=== PATIENT | female | born 1940 | race Caucasian/White ===

== ENCOUNTER 2017-02-21 08:51 | Day surgery (SDC) | payer MEDICARE ==
[2017-02-21] VITALS (11 sets, daily range): BP systolic 144–178; BP diastolic 63–85; PULSE 69–85; RESP 12–24; O2SAT 95–100
[~2017-02-21] VITALS: Ht 170.2 cm; Wt 80.7 kg
--- NOTE | 2017-02-21 06:47 | PCM.HPANE ---
Patient Data Surgeon Admitting Provider: Attending Provider:Rocky Ivy MD Primary Care Physician:Aaliyah Lopez Other Provider:Genesis Patrick Anesthesia Reason for Visit Right Breast Cancer Ht/WT & BMI Height (Feet): 5 Height (Inches): 7 Weight (Kilograms): 80.7 Body Mass Index 27.00 Allergies Coded Allergies: Penicillins (Verified Allergy, Severe, HIVES, 08/13/10) latex (Verified Allergy, Intermediate, rash with bandaids, 08/12/10) morphine (Verified Allergy, Intermediate, N/V, 08/12/10) levothyroxine sodium (Verified Allergy, Mild, itching, 08/12/10) Sulfa (Sulfonamide Antibiotics) (Verified Allergy, Unknown, 08/12/10) cortisone (Verified Allergy, Unknown, rash, 01/14/15) estradiol (Verified Allergy, Unknown, 04/22/16) gabapentin (Verified Allergy, Unknown, 04/22/16) milk (Verified Allergy, Unknown, 04/22/16) peanut (Verified Allergy, Unknown, 04/22/16) Uncoded Allergies: SULFA (Allergy, Unknown, 06/17/09) Past Anesthesia History Anesthesia History: Denies:: Abnormal Airway, Anesthesia Reactions, Difficult Intubation, Fam Anesthesia Reaction, Fam Malignant Hypertherm, Malignant Hyperthermia Diabetes History Hx Diabetes?: No MRSA MRSA: No Medications Blood Thinner: Aspirin Hypertension Medication: Yes Home Meds Incl Beta Jeanna: No Reported Medications Cholecalciferol (Vitamin D3) (Vitamin D3)1,000 Unit Tab.chew1,000 Unit PO DAILY 02/16/17 Levothyroxine (Synthroid)100 Mcg Xlejeo143 Mcg PO DAILY Ref 0 02/16/17 oxyCODONE 5 Mg Tablet5 Mg PO Q4H PRN For Pain Ref 0 02/16/17 Oxybutynin Chloride ER 5 Mg Tab.er.245 Mg PO DAILY Ref 0 02/16/17 Omeprazole 20 Mg Capsule.dr20 Mg PO DAILY Ref 0 02/16/17 Losartan Potassium 25 Mg Ltjpdu63 Mg PO DAILY 02/16/17 Lorazepam 0.5 Mg Tablet0.25-0.5 Mg PO TID PRN For Anxiety Ref 0 02/16/17 Fish Oil/Borage/Flax/Om3,6,9#1 (Hgtemvnn-Ajks-Thnfmc Oil Sftgl)400 Mg Abuikyy594 Mg PO BID 02/16/17 Multivits-Min/FA/Lycopene/Lut (Centrum Silver Tablet)1 Each Tablet1 Each PO DAILY 02/16/17 Calcium Carbonate (Calcium)600 Mg Ceshiz192 Mg PO BID 02/16/17 Biotin 1 Mg Tablet1 Mg PO DAILY 02/16/17 Aspirin 81 Mg Qujgjq33 Mg PO DAILY Ref 0 02/16/17 Acetaminophen (Tylenol Arthritis)650 Mg Tablet.er650 Mg PO TID PRN For Pain 02/16/17 Discontinued Reported Medications Ibuprofen 200 Mg Zwekapy022-956 Mg PO QID PRN For Pain Ref 0 02/16/17 Benzonatate 200 Mg Sahyulr158 Mg PO TID PRN For Cough 02/16/17 [place] Oil/[place]-3 Fatty Acids (Fish Oil 500 mg Softgel)1 Each Capsule1 Each PO DAILY 04/27/16 Calcium Carbonate 650 Mg Tablet1,500 Mg PO DAILY 04/27/16 Cholecalciferol (Vitamin D3) (Vitamin D3)1,000 Unit Tab.chew1,000 Unit PO DAILY 04/22/16 Losartan Potassium 25 Mg Ngruka98 Mg PO DAILY 04/22/16 Estradiol (Estrace)42.5 Gm Cream.appl1 G VG UD #1 TUBE Ref 0 04/22/16 Multivits-Min/FA/Lycopene/Lut (Centrum Silver Tablet)1 Each Tablet1 Each PO DAILY 04/22/16 Acetaminophen 325 Mg Rvzmpmr611 Mg PO TID PRN For Pain 04/22/16 Levothyroxine (Synthroid)88 Mcg Iygtoh31 Mcg PO DAILY 30 Days Ref 0 01/10/15 Lactobacillus Combo No.11 (Probiotic)1 Each Cap.sprink1 Tab PO DAILY 01/10/15 Oxybutynin Chloride ER 5 Mg Tab.er.245 Mg PO DAILY 30 Days Ref 0 01/10/15 Omeprazole Magnesium (Omeprazole)20 Mg Capsule.dr20 Mg PO BID 30 Days Ref 0 01/10/15 Ibuprofen 200 Mg Juukyok456-618 Mg PO DAILYWD Ref 0 01/10/15 Biotin 1 Mg Tablet1 Mg PO 01/10/15 Aspirin (Aspir 81)81 Mg Tablet.dr81 Mg PO DAILY Ref 0 01/10/15 History History of ENT Problems?: Yes HEENT History: Positive for:: Cataracts (bilateral surgery) Dysphagia Hearing Problem (MILD) Sinus Problem (frequent AYERS due to Sinus pressure) TMJ (wears nightguard) Denies:: Abnormal Airway Difficult Intubation Glaucoma Denture Type: None Teeth Condition: Within Normal Limits Hx of Heart Problems?: Yes Cardiovascular History: Positive for:: Hypertension Irregular Heartbeat (hx of irregular heart beat) Denies:: AICD Atrial Fibrillation Cardiac Surgery Chest Pain Congestive Heart Failure Coronary Artery Disease Edema Heart Murmur Pacemaker Thrombophlebitis Valvular Heart Disease Hx of Respiratory Problem?: Yes Respiratory History: Positive for:: Dyspnea (with PE remote hx) Pneumonia (hx of- not current ) Use of C-PAP Machine Denies:: Asthma COPD Chest Surgery Cough Emphysema Hemoptysis Oxygen Administration Tuberculosis Hx Neurologic Problems?: No Neurological History: Denies:: Alzheimer's Disease CVA Dementia Dizziness Headaches Multiple Sclerosis Parkinson's Disease Seizures Hx of GI Problems?: No Hx of Problems?: Yes Genitourinary History: Denies:: Kidney Stones Urinary Tract Infection Other Pertinent History: hx of bladder cancer - Female Hx: Positive for:: Problems with Breasts? (right breast current admission problem) Denies:: Currently (hysterectomy) Endometriosis Pelvic Inflammatory Skin History: Positive for:: History Skin Disorders? (recent back incision- healing nicely ) Denies:: Pressure Ulcers Hx Musculoskeletal Problems?: Yes Musculoskeletal History: Positive for:: Back Injury (back surgery [place] 14[place] - fusion two vertebrae lumbar) Degenerative Joint Joint Replacement (R TKA) Osteoarthritis Denies:: Fibromyalgia Musculoskeletal Trauma Systemic Lupus Hx of Psycho/Social Problems?: No Psycho Social History: Denies:: Anxiety Bipolar Disorder Hx Depression Hx Surgeries?: Yes (hysterectomy,bladder repair,knee replacement,back fusion, thyroid) Hx Any Other Health Problems?: Yes Other History: Positive for:: Cancer (bladder & thyroid, breast current admission problem) Hospitalization Thyroid Disease (removed) Denies:: Endocrine Disease History Blood Transfusions: Positive for:: Accept Blood Products? Denies:: Blood Transfusions Hx Diabetes: No Hx Alcohol Use: NoHx Substance Use: No Smoking Status: Former Smoker Have You Smoked inLast 12 mo: No Stop/Bang Treated for Sleep Apnea?: Yes Do You Have a CPAP Machine?: Yes S-Snoring: Do You Snore Loudly: No T-Tired: feel tired, fatigued: No O-Obsered: Observed not breath: No P-Blood Pressure: treated: Yes B- Body Mass Index > 35 kg/m2: No A- Age over 50: Yes N- Neck Large Circumference: No G- Gender Male: No KAL Total Score: 2 KAL Risk Assessment: High Risk, =/>3 Yes KAL Category 2: Yes Risk Assessment Category Category 1A: Patient has history of documented sleep apnea, and HAS NOT received any narcotic, sedative or anesthesia administration during this stay. Category 1B: Patient has history of documented sleep apnea, and HAS received any narcotic , sedative or anesthesia administration during this stay Category 2: Patient has SUSPECTED Obstructive Sleep Apnea, and HAS received any narcotic , sedative or anesthesia administration during this stay. Category 3: Patient has SUSPECTED Obstructive Sleep Apnea and HAS NOT received narcotic, sedative or anesthesia administration during this stay. Category 4: Outpatient in Procedural Areas with known sleep apnea or who screen positive for High Risk via the STOP/BANG questionnaire. Exam Exam General Appearance: Alert, Oriented X3, Cooperative, No Acute Distress HEENT/AIRWAY: MP 2 Lungs: Clear to Auscultation, Normal Air Movement Heart: Exam Unremarkable, Regular Rate/Rhythm, No Murmurs/Rubs/Gallops Plan Impression Patient chart reviewed, patient interviewed and anesthestic plan with risks, benefits, and alternatives discussed, and informed consent obtained. NPO per Anesth. Guidelines: Yes ASA Physical Status: ASA2 Mod Systemic Disease Anesthetic Plan: GA Bene/Risks/Altern/Consents: Yes HP Complete Prior to Induction: Yes Deejay Jordan MD Feb 21, 2017 06:47
[~2017-02-21 08:51] MED LIST: ACET-2766 PO; ASPI-973 PO; BENZ200C44 PO; BIOT1TAB13 PO; CALC600T12 PO; CHOL10008 PO; FISH400C PO; IBUP200C PO; LEVO100T97 PO; LORA0.5T PO; LOSA25TA21 PO; Lactated Ringer's 1,000 ML IV ONE; MULT-1073 PO; OMEP20CA11 PO; OXYB5TAB PO; OXYC5TAB72 PO
[2017-02-21] MEDS ORDERED: Propofol 10,000 mCg/mL 20 mL Inj ONE (08:52)
[2017-02-21] MEDS ORDERED: fentaNYL-PF 50 mCg/mL 2 mL Inj ONE (08:52)
[2017-02-21] MEDS ORDERED: Ondansetron 2 mg/mL 2 mL Inj ONE (08:52)
[2017-02-21] MEDS ORDERED: Dexamethasone 4 mg/mL Inj ONE (08:52)
[2017-02-21] MEDS ORDERED: Lactated Ringer's 1,000 ML IV ONE (09:20)
--- NOTE | 2017-02-21 09:32 | DRSVH ---
PROCEDURE: NM SENTINEL NODE INJECTION ONLY, RIGHT BREAST RADIOPHARMACEUTICAL: 0.5 mCi Millipore filtered Tc-99m sulfur colloid. INDICATIONS: RIGHT BREAST CANCER PROCEDURE: The indications, alternatives, benefits, risks, and complications of the procedure were explained to the patient. Written informed consent was obtained and placed in the chart. The area around the nip ple was prepped and draped in a sterile fashion. Tc-99m sulfur colloid was injected in the outer edg e of the areola in the right breast. No image was obtained. IMPRESSION: Administration of radiotracer into the right breast periareolar region for intra-operati ve sentinel lymph node localization. Dictated by: Bernardino Esquivel M.D. on 02/21/2017 at 9:29 Approved by: Bernardino Esquivel M.D. on 02/21/2017 at 9:30
[2017-02-21] MEDS ORDERED: Bupivacaine-MPF 0.5% W/EPI 30 mL Inj INFILTRATE ONE (10:23)
[2017-02-21] MEDS ORDERED: Lactated Ringer's 1,000 ML IV SCH (10:53)
[2017-02-21] MEDS ORDERED: Lactated Ringer's 500 ML IV PRN (10:53)
[2017-02-21] MEDS ORDERED: Ondansetron 2 mg/mL 2 mL Inj IVPUSH PRN (10:55)
[2017-02-21] MEDS ORDERED: Labetalol 5 mg/mL 4 mL Inj IV PRN (10:55)
[2017-02-21] MEDS ORDERED: Dexamethasone 4 mg/mL Inj IVPUSH PRN (10:55)
[2017-02-21] MEDS ORDERED: MetoCLOpramide 5 mg/mL 2 mL Inj IVPUSH PRN (10:55)
[2017-02-21] MEDS ORDERED: EPHEDrine Sulfate 50 mg/mL Inj IVPUSH PRN (10:55)
[2017-02-21] MEDS ORDERED: Atropine 0.4 mg/mL Inj IVPUSH PRN (10:55)
[2017-02-21] MEDS ORDERED: Phenylephrine 10,000 mCg/mL Inj IVPUSH PRN (10:55)
--- NOTE | 2017-02-21 11:57 | PCM.SURGOP ---
Surgical Operative Report Date of Service: Feb 21, 2017 Pre Operative Diagnosis Right breast cancer Post Operative Diagnosis Same Procedure: Wire localized right partial mastectomy, right axillary sentinel lymph node biopsy, adjacent tissue transfer less than 60 cm Surgeon and Furniture Mover: Surgeon: Rocky Ivy MD Assistants: Karsten Guevara MD PGY-3 Indication for Procedure 77-year-old woman who was found on screening mammogram to have a new 6 mm irregular density in the right breast 8 o'clock position. Her biopsy demonstrated invasive lobular carcinoma, ER/MI positive, VDY-2-wfridwye. After discussion of risks and benefits, she agreed to proceed with wire localized right partial mastectomy, right axillary sentinel lymph node biopsy. Findings: There was a single sentinel node. There was very little radiotracer uptake, but it did blue dye uptake. The ex vivo gamma count was 18, compared to a background count of 3. Procedure Details Preoperatively, the patient underwent right breast wire localization in the [facility]. She was then brought to the preoperative area, where she received a radiotracer injection for sentinel node identification. She was brought to the operating room, where she underwent smooth induction of general anesthesia with an LMA. The radiotracer signal in the right axilla was quite weak, so methylene blue was injected. A total of 2 mL was injected in 0.5 mL aliquots into the subdermal tissue around the areolar border. The breast was massaged for several minutes. She was then prepped and draped in wide sterile fashion. A procedural pause was performed according to the SCOAP checklist, and all were found to be in agreement. A radial incision was made in the lower outer quadrant of the right breast. Dissection was carried down through the superficial breast parenchyma with electrocautery. The wire was delivered into the wound from the lateral aspect. Using the wire as a guide, circumferential dissection was carried out. At the superficial aspect along the wire, the gelatin capsule around the clip was visualized, as well as the clip. Dissection was carried back to the chest wall. Pectoralis muscle was not resected, but the posterior margin of dissection circumferentially was the pectoralis fascia. The right breast tissue from the lower outer quadrant was excised, oriented with suture, and a specimen radiograph was obtained. The clip was present in the specimen. That tissue was sent for permanent pathology. Because the clip had been encountered along the wire superficially, anterior margins were obtained, which extended along both sides of the cavity circumferentially back to the pectoralis fashion. First, a shave margin was obtained from the anteromedial margin, oriented with suture, and sent for permanent pathology. Next, an anterolateral margin was obtained with electrocautery, oriented with suture, and sent for permanent pathology. The breast parenchyma was then mobilized off the chest wall both medially and superolaterally. Breast parenchymal flaps measured approximately 5 x 5 cm each. The partial mastectomy cavity was marked with hemoclips. The breast parenchyma was approximated to obliterate the space using interrupted 3-0 Vicryl sutures both the deep aspect of the flap and the superficial aspect of the flap. A curvilinear incision was then made at the inferior border of the hairbearing skin in the right axilla. Dissection was carried through the subcutaneous tissue until the axillary fascia was incised. The axilla was explored using the gamma probe as a guide. The radiotracer signal in the right axilla was quite weak. Along the lateral border of the pectoralis muscle a blue lymphatic channel was visualized, and traced to a blue lymph node. That lymph node was excised using electrocautery. Ex vivo, it had a weak but definite radiotracer signal of 18. The background count in the right axilla was 3. That lymph node was sent for permanent pathology, labeled as right axillary sentinel lymph node. There were no other pathologic lymph nodes in the right axilla. The axillary fascia was closed with interrupted 3-0 Vicryl suture. Both skin incisions were closed with running 4-0 Vicryl subcuticular suture. Steri-Strips and sterile dressings were applied. At the end of the case all needle and sponge counts were correct 2. The patient was awakened from anesthesia without difficulty, and taken to the recovery room in satisfactory condition, having tolerated the procedure well. Complications There were no periprocedural complications identified. Surgical Specimen Removed: Yes Specimen sent to Pathology: Yes Surgical Specimen description: Right breast tissue, lower outer quadrant. Anteromedial margin. Anterolateral margin. Right axillary sentinel lymph node. Anesthetic Plan: GA Grafts, Implants: None Output, Estimated Blood Loss: 10 Blood Administration during mendiola: No Drains: None Catheters: None copies to: Darshan Reyes MD; Jeanette Ball MD; Aaliyah Lopez Joshua D MD Feb 21, 2017 11:57
[2017-02-21] MEDS ORDERED: oxyCODONE-Acetamin 5-325 mg Tablet PO PRN (12:25)
--- NOTE | 2017-02-21 12:30 | PCM.DISURG ---
Surgical Discharge Instruction Date of Service Feb 21, 2017 Dates of Hospitalization Date of Hospital Admission Providers Admitting Physician: Primary Care Physician: Aaliyah Lopez Attending Physician: Rocky Ivy MD Discharge Diagnosis Post Operative diagnosis Same Diet Discharge Diet: No restrictions Activity Discharge Activity-General: Try not to overdue, No driving while taking narcotic Dressing and Incisional Care Dressing Care: Allow Steri Stripes to fall off, Remove outer dressing after 24 hrs Dressing Instructions: Remove outer bandage and gauze after 24 hours, leaving steristrips behind. Hygiene: May shower after (24 hr), NO bathtub, hot tub or whirlpool (for 4 weeks.) Follow Up Plan Follow Up Plan Follow up with Dr. Ivy in 7-10 days. Call your provider for: Fever, Chills, Nausea, Vomiting, Wound redness, Increasing wound pain, Discharge @ incision, pus discharge Floyd Guevara MD Feb 21, 2017 12:30
[2017-02-21] MEDS: HYDROmorphone 1 mg/mL Inj IVPUSH PRN ×2 (12:41→13:01)
[2017-02-21] MEDS: fentaNYL-PF 50 mCg/mL 2 mL Inj IVPUSH PRN ×4 (12:43→13:10)
--- NOTE | 2017-02-23 11:20 | DRSVH ---
SPECIMEN: 02/21/2017 CLINICAL: Breast specimen right. Correlation is made to exams dated: 02/21/2017 mammogram - [facility], 02/03/2017 breast MRI - [facility], 01/03/2017 ultrasound biopsy, 01/03/2017 mammogram, and 12/28/2016 ultrasound - [facility]. IMPRESSION: SPECIMEN Specimen radiogrpah containing a post biopsy marking clip and a portion of the marking wire. This exam was interpreted at Station ID: [id number]. Parker Goldman M.D. cj/:02/21/2017 20:01:13 Additional referring physicians: DEIDRE CAPONE [facility]
== END 2017-02-21 23:59 | disposition home or self-care (01) ==
LOC: SAS 08:51
PROVIDERS: ATTEND Student in an Organized Health Care Education/Training Program
DX: C50.911 Malignant neoplasm of unspecified site of right female breast (principal); Z17.0 Estrogen receptor positive status [ER+]; I10 Essential (primary) hypertension; E03.9 Hypothyroidism, unspecified; G47.30 Sleep apnea, unspecified; K21.9 Gastro-esophageal reflux disease without esophagitis; E78.5 Hyperlipidemia, unspecified; K58.9 Irritable bowel syndrome, unspecified; R00.2 Palpitations; Z86.718 Personal history of other venous thrombosis and embolism; Z87.891 Personal history of nicotine dependence; Z79.82 Long term (current) use of aspirin
CPT/HCPCS: 14001; 19301; 38525; 38792; 76098; A9541; J1100; J1170; J2250; J2405; J2765; J3010; J7120